=== PATIENT | female | born 1935 | race Two or more races ===

== ENCOUNTER 2019-04-02 11:48 | Outpatient (CLI) | payer OTHER, MEDICARE | END 2019-04-02 23:59 | disposition home or self-care (01) | LOC: CFH 11:48 | PROVIDERS: ATTEND Family Medicine | DX: M47.815 Spondylosis without myelopathy or radiculopathy, thoracolumbar region (principal); M19.011 Primary osteoarthritis, right shoulder; M19.012 Primary osteoarthritis, left shoulder; G89.29 Other chronic pain | CPT/HCPCS: 72110 ==

== ENCOUNTER → 2019-04-30 | Outpatient (CLI) | payer OTHER, MEDICARE | END | disposition home or self-care (01) | LOC: RAD 16:11 | PROVIDERS: ATTEND Family Medicine | DX: M19.012 Primary osteoarthritis, left shoulder (principal); M75.102 Unspecified rotator cuff tear or rupture of left shoulder, not specified as traumatic; M62.50 Muscle wasting and atrophy, not elsewhere classified, unspecified site; M25.412 Effusion, left shoulder; M94.20 Chondromalacia, unspecified site; M25.78 Osteophyte, vertebrae ==

== ENCOUNTER 2019-10-31 10:10 | Emergency (ER) | payer OTHER, MEDICARE ==
[~2019-10-31] VITALS: Ht 162.6 cm; Wt 57.4 kg
--- NOTE | 2019-10-31 10:41 | NUR ---
Assumed care of patient. C/O of constipation x 3 days. Patient took one dose of metamucil without relief. C/O ABD pain and nausea. at bedside. Will continue to monitor.
[2019-10-31] MEDS ORDERED: ONDANSETRON ODT 8 MG ONE (11:18)
[2019-10-31 11:19] LABS: BASOPHILS # (AUTO) 0.02 x10^3/uL (0-0.1); BASOPHILS % (AUTO) 0 % (0-1); EOSINOPHILS % (AUTO) 0 % (1-7); LYMPHOCYTES # (AUTO) 1.11 x10^3/uL (1-3.4); LYMPHOCYTES % (AUTO) 11 % (22-44); MD NO; MEAN CORPUSCULAR HEMOGLOBIN 30.3 pg (27.0-34.8); MEAN CORPUSCULAR HGB CONC 32.9 g/dL (32.4-35.8); MEAN CORPUSCULAR VOLUME 92.2 fL (80-100); MEAN PLATELET VOLUME 8.5 fL (7.4-10.4); MONOCYTES # (AUTO) 0.55 x10^3/uL (0.2-0.8); MONOCYTES % (AUTO) 5 % (2-9); NEUTROPHILS # (AUTO) 8.86 x10^3/uL (1.8-6.8); NEUTROPHILS % (AUTO) 84 % (42-75); PLATELET COUNT 239 x10^3/uL (130-400); RED BLOOD COUNT 4.91 x10^6/uL (3.82-5.3); RED CELL DISTRIBUTION WIDTH 13.7 % (9.6-15.2)
[2019-10-31 11:27] LABS: ALANINE AMINOTRANSFERASE 40 U/L (12-78); ALBUMIN 3.5 g/dL (3.4-5.0); ANION GAP 11 mmol/L (5-15); CALCIUM 9.5 mg/dL (8.5-10.1); CHLORIDE 94 mmol/L (98-107); CREATININE 1.05 mg/dL (0.55-1.02)
[2019-10-31 11:29] LABS: ALKALINE PHOSPHATASE 91 U/L (45-117); BILIRUBIN,TOTAL 1.1 mg/dL (0.2-1.0); TOTAL PROTEIN 7.8 g/dL (6.4-8.2)
[2019-10-31] MEDS ORDERED: ONDANSETRON ODT 8 MG PO ONE (11:30)
[2019-10-31] MEDS ORDERED: PINK LADY ENEMA 490 ML BOTTLE PR ONE (11:53)
--- NOTE | 2019-10-31 11:54 | NUR ---
Resting in [place]. Provided with blanket. No needs.
[2019-10-31] MEDS ORDERED: SODIUM CHLORIDE FLUSH 10ML SYR IVF ONE (13:00)
[2019-10-31] MEDS ORDERED: SODIUM CHLORIDE 0.9% 1,000ML IVBOLUS ONE (13:00)
--- NOTE | 2019-10-31 13:02 | NUR ---
[place] lady admin. Patient lying on left side. Call light within reach.
--- NOTE | 2019-10-31 13:30 | NUR ---
No BM produced from enema. and PA aware.
--- NOTE | 2019-10-31 14:13 | NUR ---
Patient in CT.
[2019-10-31 15:20] VITALS: BP 126/64
--- NOTE | 2019-10-31 15:20 | NUR ---
Patient/Caregiver given discharge instructions and they have confirmed that they understand the instructions. Patient ambulatory with steady gait.
== END 2019-10-31 15:22 | disposition home or self-care (01) ==
LOC: ED 11:45
DX: R10.84 Generalized abdominal pain (principal); E11.65 Type 2 diabetes mellitus with hyperglycemia; E87.1 Hypo-osmolality and hyponatremia; M41.9 Scoliosis, unspecified; M47.896 Other spondylosis, lumbar region; K59.00 Constipation, unspecified; I10 Essential (primary) hypertension; Z90.49 Acquired absence of other specified parts of digestive tract; Z88.0 Allergy status to penicillin
CPT/HCPCS: 36415; 74021; 74176; 80053; 85025; 96360; 99285; J7030; Q0162